=== PATIENT | male | born 1975 | race Caucasian/White ===

== ENCOUNTER 2018-04-01 10:59 | Emergency (ER) | payer OTHER, BC ==
[2018-04-01 11:05] VITALS: BP 148/87
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
[2018-04-01] MEDS ORDERED: IBUPROFEN 600 MG TAB PO ONE (12:02)
== END 2018-04-01 12:34 | disposition home or self-care (01) ==
DX: S16.1XXA Strain of muscle, fascia and tendon at neck level, initial encounter (principal); J45.909 Unspecified asthma, uncomplicated; V49.40XA Driver injured in collision with unspecified motor vehicles in traffic accident, initial encounter; Y92.410 Unspecified street and highway as the place of occurrence of the external cause; Y99.8 Other external cause status; Y93.89 Activity, other specified